=== PATIENT | male | born 1935 | race Caucasian/White ===

== ENCOUNTER 2016-08-31 16:39 | Emergency (ER) | payer OTHER ==
[2016-08-31 16:55] LABS: A-aADO2 96; ALLEN TEST OK? YES; ARTERIAL BLD GAS O2 SATURATION 95.5 % (95-100); ARTERIAL BLOOD GAS BASE EXCESS 9.1 (-2.0-2.0); ARTERIAL BLOOD GAS FIO2 32 %; ARTERIAL BLOOD GAS PO2 63 mmHg (75-100); ARTERIAL BLOOD GAS pH 7.42 (7.35-7.45)
--- NOTE | 2016-08-31 17:07 | ERPHSYRPT ---
- History of Present Illness Source: patient Exam Limitations: clinical condition Patient Subjective Stated Complaint: PT STATES HE HAS BEEN SOB FOR THE PAST 12 HOURS. STATES HE HAS HAD RECENT HEART ATTACK IN THE LAST FEW MONTHS AND GOES TO [facility]. PT HAS HOME OZ AND NEBULIZER TREATMENTS. Triage Nursing Assessment: PT PINK, WARM, DRY. LUNG SOUNDS WHEEZES AND CRACKLES TROUGHOUT. PT UNABLE TO SPEAK IN FULL SENTENCES. Timing/Duration: hour(s) (12) Activities at Onset: none Severity of Dyspnea-Max: moderate Severity of Dyspnea-Current: moderate Possible Cause: occasional episodes Modifying Factors: Improves With: activity Associated Symptoms: edema, wheezing, ankle swelling Hx Tetanus, Diphtheria Vaccination/Date Given: Yes (UP TO DATE) Hx Influenza Vaccination/Date Given: Yes Hx Pneumococcal Vaccination/Date Given: Yes Immunizations Up to Date: Yes <DENNIS VELASQUEZ - Last Filed: 08/31/16 18:57> <CINDY SCALES - Last Filed: 08/31/16 19:54> - History of Present Illness Time Seen by Provider: 08/31/16 16:45 Allergies/Adverse Reactions: No Known Drug Allergies Allergy (Unverified 08/31/16 16:54) Home Medications: Unobtainable [Unobtainable] 08/31/16 [History] - Review of Systems Constitutional: Weakness Eyes: No Symptoms Ears, Nose, & Throat: No Symptoms Respiratory: Dyspnea, Dyspnea on Exertion ([place]), Wheezing Cardiac: Edema Abdominal/Gastrointestinal: No Symptoms Musculoskeletal: No Symptoms Skin: No Symptoms Neurological: No Symptoms Psychological: No Symptoms Endocrine: No Symptoms Hematologic/Lymphatic: No Symptoms <DENNIS VELASQUEZ - Last Filed: 08/31/16 18:57> - Past Medical History Pertinent Past Medical History: Yes Neurological History: No Pertinent History Cardiac History: Other Respiratory History: No Pertinent History, COPD Endocrine Medical History: No Pertinent History Musculoskeletal History: Osteoarthritis Other Medical History: PACEMAKER - Past Surgical History Past Surgical History: Yes Cardiac: Cardiac Catheterization, Pacemaker - Social History Smoking Status: Light tobacco smoker Exposure to second hand smoke: No Drug Use: none Patient Lives Alone: No <DENNIS VELASQUEZ - Last Filed: 08/31/16 18:57> - Physical Exam General Appearance: moderate distress Eye Exam: eyes nml inspection Ears, Nose, Throat Exam: normal ENT inspection, normal pharynx Neck Exam: normal inspection, non-tender, supple, full range of motion Respiratory Exam: respiratory distress, diminished breath sounds, accessory muscle use, crackles/rales, wheezing Cardiovascular/Chest Exam: normal heart sounds Abdominal/Gastrointestinal Exam: soft, normal bowel sounds Extremity Exam: non-tender, normal range of motion, pedal edema (4+ and [place]wn[place] LE) Neurologic Exam: alert, oriented x 3, cooperative Skin Exam: normal color, warm, dry SpO2 Interpretation: hypoxic, ABG ordered, O2 applied SpO2: 71 Oxygen Delivery: Room Air <DENNIS VELASQUEZ - Last Filed: 08/31/16 18:57> - Course Nursing assessment & vital signs reviewed: Yes EKG Interpreted by Me: RATE (80), Sinus Rhythm, Left [place] Deviation (-92), Right Bundle Branch Block, Other (No old ECG for comparison) <DENNIS VELASQUEZ - Last Filed: 08/31/16 18:57> - Radiology Exams cxr X-ray Interpretation: Reviewed by me (CHF and moderate left pleural effusion) <CINDY SCALES - Last Filed: 08/31/16 19:54> Ordered Tests: Active Orders 24 hr Category Date Time Status Sound Equipment Mechanic STAT Care 08/31/16 16:56 Active Clean Catch Urine Specimen STAT Care 08/31/16 17:10 Active EKG-ER Only STAT Care 08/31/16 16:54 Active IV Insertion STAT Care 08/31/16 16:56 Active Oxygen-ED Only NASAL CANNULA 3 lpm Care 08/31/16 17:10 Active Pulse Oximetry (ED) STAT Care 08/31/16 17:10 Active CHEST 1 VIEW (PORTABLE) Stat Exams 08/31/16 17:11 Taken ABG [ARTERIAL BLOOD GASES] Stat Lab 08/31/16 16:50 Completed CBC W DIFF Stat Lab 08/31/16 17:10 Completed CMP Stat Lab 08/31/16 17:10 Completed MAGNESIUM Stat Lab 08/31/16 17:10 Completed Manual Differential NC Stat Lab 08/31/16 17:10 Completed NT PRO BNP Stat Lab 08/31/16 17:10 Completed TROPONIN Q3H Lab 08/31/16 19:45 Ordered TROPONIN Q3H Lab 08/31/16 22:45 Ordered TROPONIN Q3H Lab 09/01/16 01:45 Ordered TROPONIN Q3H Lab 09/01/16 04:45 Ordered TROPONIN Q3H Lab 09/01/16 07:45 Ordered TROPONIN Stat Lab 08/31/16 17:10 Completed UA W/ MICROSCOPIC Stat Lab 08/31/16 17:49 Completed Respiratory Nebulizer STAT RT 08/31/16 19:32 Completed Medication Summary Discontinued Medications Generic Name Dose Route Start Last Admin Trade Name Freq PRN Reason Stop Dose Admin Albuterol/Ipratropium 3 ml 08/31/16 19:31 08/31/16 19:41 Duoneb 0.5-3 Mg/3 Ml Neb IH 08/31/16 19:32 3 ml STAT ONE Administration Albuterol/Ipratropium Confirm 08/31/16 19:40 Duoneb 0.5-3 Mg/3 Ml Neb Administered 08/31/16 19:41 Dose 3 ml IH .STK-MED ONE Aspirin 81 mg 08/31/16 19:31 08/31/16 19:51 Baby Aspirin 81 Mg Chew PO 08/31/16 19:32 81 mg STAT ONE Administration Furosemide 80 mg 08/31/16 18:50 08/31/16 19:01 Lasix 40 Mg/4 Ml IV 08/31/16 18:51 80 mg STAT ONE Administration Furosemide Confirm 08/31/16 19:00 Lasix 40 Mg/4 Ml Administered 08/31/16 19:01 Dose 80 mg .ROUTE .STK-MED ONE Nitroglycerin 1 gm 08/31/16 17:10 08/31/16 17:19 Nitro-Bid 2% Ud Packets TOP 08/31/16 17:11 1 gm STAT ONE Administration Lab/Rad Data: Laboratory Result Diagrams 08/31/16 17:10 08/31/16 17:10 Laboratory Results 08/31/16 08/31/16 08/31/16 Range/Units 17:49 17:10 17:10 WBC 13.5 H (4.0-10.5) K/mm3 RBC 5.05 (4.1-5.6) M/mm3 Hgb 14.5 (12.5-18.0) gm/dl Hct 47.1 (42-50) % MCV 93.3 (78-100) fl MCH 28.7 (26-32) pg MCHC 30.8 L (32-36) g/dl RDW 16.3 H (11.5-14.0) % Plt Count 58 L (150-450) K/mm3 MPV 14.4 H (6-9.5) fl Segmented Neutrophils 92 H (36.-66.) % Band Neutrophils 6 H (0.0-2.0) % Lymphocytes (Manual) 2 L (24-44) % Differential Comment ABNORMAL Platelet Estimate DECREASED (NORMAL) Polychromasia 1+ Basophilic Stippling 1+ Anisocytosis 1+ Puncture Site pCO2 (35-45) mmHg pO2 (75-100) mmHg Base Excess (-2.0-2.0) O2 Saturation (94-100) g/dF ABG pH (7.35-7.45) ABG HCO3 (22-28) ABG O2 Sat (Measured) (95-100) % Kvng Test A-a Gradient a/A Ratio Hemoglobin Carboxyhemoglobin (0.0-6.9) % THgb Methemoglobin (1.4-1.5) % Potassium 4.7 (3.5-5.1) Temperature C POC O2 Flow Rate % Sodium 137 (136-145) mEq/L Chloride 94 L (98-107) mEq/L Carbon Dioxide 34.9 H (21-32) mEq/L Anion Gap 13.2 (5-15) MEQ/L BUN 18 (9-20) mg/dL Creatinine 0.93 (0.55-1.30) mg/dl Estimated GFR > 60 ML/MIN Glucose 102 (70-110) MG/DL Calcium 8.7 (8.5-10.1) mg/dL Magnesium 2.1 (1.8-2.4) mg/dL Total Bilirubin 1.4 H (0.2-1.0) mg/dL AST 24 (15-37) U/L ALT 19 (12-78) U/L Alkaline Phosphatase 108 (46-116) U/L Troponin I 0.042 (0.000-0.056) ng/ml NT-Pro-B Natriuret Pep 1598 H (0-450) pg/ml Serum Total Protein 8.0 (6.4-8.2) gm/dL Albumin 3.3 L (3.4-5.0) g/dL Ur Collection Type CLEAN CATCH Urine Color DARK YELLOW (YELLOW) Urine Appearance CLEAR (CLEAR) Urine pH 7.0 (5-6) Ur Specific [place] 1.015 (1.005-1.025) Urine Protein 30 (Negative) Urine Glucose (UA) NEGATIVE (NEGATIVE) mg/dL Urine Ketones NEGATIVE (NEGATIVE) Urine Nitrite NEGATIVE (NEGATIVE) Urine Bilirubin NEGATIVE (NEGATIVE) Urine Urobilinogen >=8.0 (0-1) mg/dL Urine WBC (Auto) NEGATIVE (NEGATIVE) Urine RBC (Auto) NEGATIVE (0-5) Gaurav/ul Urine Microscopic RBC 0-2 (0-2) /HPF Urine Microscopic WBC 0-2 (0-5) /HPF Ur Epithelial Cells FEW (FEW) /HPF Urine Bacteria FEW (NEGATIVE) /HPF Specimen Received 08/31/16 1740 08/31/16 Range/Units 16:50 WBC (4.0-10.5) K/mm3 RBC (4.1-5.6) M/mm3 Hgb (12.5-18.0) gm/dl Hct (42-50) % MCV (78-100) fl MCH (26-32) pg MCHC (32-36) g/dl RDW (11.5-14.0) % Plt Count (150-450) K/mm3 MPV (6-9.5) fl Segmented Neutrophils (36.-66.) % Band Neutrophils (0.0-2.0) % Lymphocytes (Manual) (24-44) % Differential Comment Platelet Estimate (NORMAL) Polychromasia Basophilic Stippling Anisocytosis Puncture Site RIGHT RADIAL pCO2 55 H (35-45) mmHg pO2 63 L (75-100) mmHg Base Excess 9.1 H (-2.0-2.0) O2 Saturation 90.6 L (94-100) g/dF ABG pH 7.42 (7.35-7.45) ABG HCO3 35.7 H* (22-28) ABG O2 Sat (Measured) 95.5 (95-100) % Kvng Test YES A-a Gradient 96 a/A Ratio 0.40 Hemoglobin 15.1 Carboxyhemoglobin 4.0 (0.0-6.9) % THgb Methemoglobin 1.1 L (1.4-1.5) % Potassium 4.7 (3.5-5.1) Temperature 37.0 C POC O2 Flow Rate 32 % Sodium (136-145) mEq/L Chloride (98-107) mEq/L Carbon Dioxide (21-32) mEq/L Anion Gap (5-15) MEQ/L BUN (9-20) mg/dL Creatinine (0.55-1.30) mg/dl Estimated GFR ML/MIN Glucose (70-110) MG/DL Calcium (8.5-10.1) mg/dL Magnesium (1.8-2.4) mg/dL Total Bilirubin (0.2-1.0) mg/dL AST (15-37) U/L ALT (12-78) U/L Alkaline Phosphatase (46-116) U/L Troponin I (0.000-0.056) ng/ml NT-Pro-B Natriuret Pep (0-450) pg/ml Serum Total Protein (6.4-8.2) gm/dL Albumin (3.4-5.0) g/dL Ur Collection Type Urine Color (YELLOW) Urine Appearance (CLEAR) Urine pH (5-6) Ur Specific [place] (1.005-1.025) Urine Protein (Negative) Urine Glucose (UA) (NEGATIVE) mg/dL Urine Ketones (NEGATIVE) Urine Nitrite (NEGATIVE) Urine Bilirubin (NEGATIVE) Urine Urobilinogen (0-1) mg/dL Urine WBC (Auto) (NEGATIVE) Urine RBC (Auto) (0-5) Gaurav/ul Urine Microscopic RBC (0-2) /HPF Urine Microscopic WBC (0-5) /HPF Ur Epithelial Cells (FEW) /HPF Urine Bacteria (NEGATIVE) /HPF Specimen Received - Progress Progress: improved Air Movement: fair Blood Culture(s) Obtained: No Antibiotics given: No Counseled pt/family regarding: lab results, diagnosis, need for follow-up ( admission at the [facility]), rad results <DENNIS VELASQUEZ - Last Filed: 08/31/16 18:57> <CINDY SCALES - Last Filed: 08/31/16 19:54> - Progress Progress Note: 08/31/16 19:32 Pt with hx of CHF. [facility]. Has had recent ND. No chest pain. Dyspnea all day. He wears home oxygen. Chronic venous stasis with unna boots per [facility]. Pt initially seen per Dr Velasquez. He desaturates off oxygen. Mildly breathless but conversant. 1+ edema legs under unna wraps. Pt desires to go to [facility]. Calling [facility] to arrnage transfer. 08/31/16 19:[address] David Randle at [facility] and he accepts ground tranfer to [facility]. (CINDY SCALES) - Departure Time of Disposition: 19:00 Departure Disposition: Transfer Critical Care Time: Yes Critical Care Time(excluding separately billable procedures): 75-104 minutes <DENNIS VELASQUEZ - Last Filed: 08/31/16 18:57> - Departure Time of Disposition: 19:54 Departure Disposition: Transfer ([facility]) Critical Care Time: Yes Critical Care Time(excluding separately billable procedures): 30-74 minutes <CINDY SCALES - Last Filed: 08/31/16 19:54> - Departure Clinical Impression: Pleural effusion, Hypoxia CHF (congestive heart failure) Qualifiers: Congestive heart failure type: unspecified congestive heart failure type Congestive heart failure chronicity: acute on chronic Qualified Code(s): I50.9 - Heart failure, unspecified Condition: Fair Referrals: HOSPITAL,'S [Primary Care Provider] - Instructions: Heart Failure
[2016-08-31] MEDS ORDERED: NITRO-BID 2% UD PACKETS TOP ONE (17:10)
[2016-08-31 17:47] LABS: Mean Cell Volume 93.3 fl (78-100); Mean Corpuscular Hemoglobin 28.7 pg (26-32); Mean Platelet Volume 14.4 fl (6-9.5); Platelet Count 58 K/mm3 (150-450); Red Blood Count 5.05 M/mm3 (4.1-5.6); Red Cell Distribution Width 16.3 % (11.5-14.0); White Blood Count 13.5 K/mm3 (4.0-10.5)
[2016-08-31 18:02] LABS: ALBUMIN 3.3 g/dL (3.4-5.0); ALKALINE PHOSPHATASE 108 U/L (46-116); ANION GAP 13.2 MEQ/L (5-15); BILIRUBIN,TOTAL 1.4 mg/dL (0.2-1.0); BLOOD UREA NITROGEN 18 mg/dL (9-20); CHLORIDE 94 mEq/L (98-107); Carbon Dioxide 34.9 mEq/L (21-32); Glucose 102 MG/DL (70-110); MAGNESIUM 2.1 mg/dL (1.8-2.4); Potassium 4.7 mEq/L (3.5-5.1); SGOT/AST 24 U/L (15-37); SGPT/ALT 19 U/L (12-78); SODIUM 137 mEq/L (136-145); TROPONIN 0.042 ng/ml (0.000-0.056)
[2016-08-31 18:25] LABS: Collection Type CLEAN CATCH
[2016-08-31 18:26] LABS: Bacteria FEW /HPF (NEGATIVE); COMPLETE URINE MICROSCOPIC? YES; Epithelial Cells FEW /HPF (FEW); WBC 0-2 /HPF (0-5)
[2016-08-31 18:38] LABS: BAND 6 % (0.0-2.0); Total Cells Counted 100
[2016-08-31 18:41] LABS: ANISOCYTOSIS 1+; Basophilic Stippling 1+; Polychromasia 1+
[2016-08-31 18:43] LABS: Platelet Estimate DECREASED (NORMAL)
[2016-08-31] MEDS ORDERED: Lasix 40 MG/4 ML IV ONE (18:50)
[2016-08-31] MEDS ORDERED: Lasix 40 MG/4 ML ONE (19:00)
[2016-08-31] MEDS ORDERED: BABY ASPIRIN 81 MG CHEW PO ONE (19:31)
[2016-08-31] MEDS ORDERED: DUONEB 0.5-3 MG/3 ml Neb IH ONE ×2 (19:31→19:40)
[2016-08-31] MEDS ORDERED: BABY ASPIRIN 81 MG CHEW ONE (19:51)
[2016-08-31 20:43] VITALS: O2SAT 89
[2016-08-31 21:10] VITALS: BP 93/58; PULSE 80
[2016-09-01] MEDS ORDERED: NITRO-BID 2% UD PACKETS ONE (02:02)
--- NOTE | 2016-09-01 08:51 | XRAY ---
Indication: Short of breath. Comparison: None Portable chest demonstrates cardiomegaly, vascular congestion, and left-sided dual-lead pacemaker. There is also left base infiltrate/atelectasis/effusion. Bony thorax intact with mild osteopenia and degenerative changes. Impression: Radiographic features favoring cardiac decompensation with left base infiltrate/atelectasis/effusion. Superimposed pneumonia not completely excluded.
== END 2016-08-31 21:25 | disposition short-term general hospital (02) ==
LOC: ED 16:39
DX: I50.9 Heart failure, unspecified (principal); J90 Pleural effusion, not elsewhere classified; R09.02 Hypoxemia
CPT/HCPCS: 36000; 36415; 36600; 71010; 80053; 81000; 82375; 82803; 83735; 83880; 84484; 85025; 93005; 93041; 94640; 94760; 96374; 99284; J1940

== ENCOUNTER 2017-06-07 05:02 | Emergency (ER) | payer OTHER ==
[2017-06-07] MEDS ORDERED: Nitrostat 0.4 MG (ED) SL ONE ×2 (05:20→11:23)
[2017-06-07] MEDS ORDERED: BABY ASPIRIN 81 MG CHEW PO ONE (05:20)
[2017-06-07] MEDS ORDERED: Sodium Chloride 0.9% 1000 ML 1,000 ML ONE (05:27)
[2017-06-07] MEDS ORDERED: Sodium Chloride 0.9% 1000 ML 1,000 ML IV SCH (05:30)
--- NOTE | 2017-06-07 05:39 | ERPHSYRPT ---
- History of Present Illness Time Seen by Provider: 06/07/17 05:13 Source: patient Exam Limitations: no limitations Physician History: FOR THE PAST 4 DAYS PT HAS HAD CHEST PAIN; FOR THE PAST 4 YEARS PT HAS HAD COUGH PRODUCTIVE OF WHITE PHLEGM. PT DENIES ABDOMINAL PAIN, DIAPHORESIS, NAUSEA , VOMITING, FEVER. Allergies/Adverse Reactions: No Known Drug Allergies Allergy (Unverified 08/31/16 16:54) Home Medications: Albuterol 2.5 mg/3 ml Neb [Proventil 2.5 mg/3 ml Neb] 2.5 mg IH Q6H PRN PRN 08/31/16 [History] Atorvastatin Calcium [Lipitor 40Mg] 10 mg PO HS 08/31/16 [History] Budesonide [Pulmicort Flexhaler] 2 inh BID 08/31/16 [History] Lisinopril 5 mg [Zestril 5 MG] 2.5 mg PO DAILY 08/31/16 [History] Metoprolol Succinate 25 mg Xl* [Toprol-Xl 25MG Tablets] 12.5 mg PO DAILY 11/12 [History] Tiotropium [place] Inhaler [Spiriva 18 Mcg/Cap Inhaler] 1 ea IH DAILY 11/12 [History] Torsemide [Demadex] 20 mg PO BID 08/31/16 [History] Hx Tetanus, Diphtheria Vaccination/Date Given: Yes (UP TO DATE) Hx Influenza Vaccination/Date Given: Yes Hx Pneumococcal Vaccination/Date Given: Yes - Review of Systems Constitutional: No Fever Respiratory: Cough, No Dyspnea Cardiac: Chest Pain Abdominal/Gastrointestinal: No Abdominal Pain, No Nausea, No Vomiting Endocrine: No Excessive Sweating All Other Systems: Reviewed and Negative - Past Medical History Pertinent Past Medical History: Yes Neurological History: No Pertinent History Cardiac History: Other Respiratory History: No Pertinent History, COPD Endocrine Medical History: No Pertinent History Musculoskeletal History: Osteoarthritis Other Medical History: PACEMAKER - Past Surgical History Past Surgical History: Yes Cardiac: Cardiac Catheterization, Pacemaker - Social History Smoking Status: Light tobacco smoker Exposure to second hand smoke: No Drug Use: none Patient Lives Alone: No - Nursing Vital Signs Nursing Vital Signs: Initial Vital Signs Temperature 97.7 F 06/07/17 05:05 Pulse Rate 80 06/07/17 05:05 Respiratory Rate 20 06/07/17 05:05 Blood Pressure 110/73 06/07/17 05:05 O2 Sat by Pulse Oximetry 91 L 06/07/17 05:05 Pain Scale Pain Intensity 3 - Physical Exam General Appearance: alert Eye Exam: PERRL/EOMI Ears, Nose, Throat Exam: moist mucous membranes, pharyngeal erythema Neck Exam: normal inspection Respiratory Exam: diminished breath sounds (MILDLY DECREASED BREATH SOUNDS OVER LEFT POSTERIOR DEE.) Cardiovascular Exam: normal heart sounds Gastrointestinal/Abdomen Exam: normal bowel sounds Back Exam: normal inspection Extremity Exam: other (+1 ANKLE EDEMA) Neurologic Exam: alert, cooperative Skin Exam: warm, dry, other (STASIS DERMATITIS OF LEGS) SpO2 Interpretation: normal SpO2: 96 Oxygen Delivery: Nasal Cannula (3L) - Course Nursing assessment & vital signs reviewed: Yes EKG Interpreted by Me: RATE (82), Other (PACEMAKER EKG) - Radiology Exams Chest X-ray Interpretation: Interpreted by me (CM; LARGE LEFT PLEURAL EFFUSION; PNEUMONIA.) Ordered Tests: Active Orders 24 hr Category Date Time Status Accelerator Systems Director STAT Care 06/07/17 05:21 Active EKG-ER Only STAT Care 06/07/17 05:20 Active IV Insertion STAT Care 06/07/17 05:20 Active Oxygen-ED Only NASAL CANNULA 2 lpm Care 06/07/17 05:20 Active Pulse Oximetry (ED) STAT Care 06/07/17 05:20 Active Regular Diet Diet 06/07/17 Breakfast Active CHEST 2 VIEWS (PA AND LAT) Stat Exams 06/07/17 05:21 Taken AMYLASE Stat Lab 06/07/17 05:10 Completed BLOOD CULTURE Stat Lab 06/07/17 05:20 Received CBC W DIFF Stat Lab 06/07/17 05:10 Completed CMP Stat Lab 06/07/17 05:10 Completed CULTURE, THROAT Stat Lab 06/07/17 07:00 Received CULTURE,SPUTUM Stat Lab 06/07/17 06:17 Uncollected LIPASE Stat Lab 06/07/17 05:10 Completed MAGNESIUM Stat Lab 06/07/17 05:10 Completed Manual Differential NC Stat Lab 06/07/17 05:10 Completed NT PRO BNP Stat Lab 06/07/17 05:10 Completed PROTIME WITH INR Stat Lab 06/07/17 05:10 Completed PTT Stat Lab 06/07/17 05:10 Completed STREP SCREEN-BETA A Stat Lab 06/07/17 07:00 Completed TROPONIN Q3H Lab 06/07/17 05:10 Completed TROPONIN Q3H Lab 06/07/17 08:30 Ordered TROPONIN Q3H Lab 06/07/17 11:30 Ordered TROPONIN Q3H Lab 06/07/17 14:30 Ordered TROPONIN Q3H Lab 06/07/17 17:30 Ordered UA W/ MICROSCOPIC Stat Lab 06/07/17 06:00 Completed Respiratory Nebulizer STAT RT 06/07/17 06:17 Active Medication Summary Generic Name Dose Route Start Last Admin Trade Name Freq PRN Reason Stop Dose Admin Sodium Chloride 1,000 mls @ 100 mls/hr 06/07/17 05:30 06/07/17 05:31 Sodium Chloride 0.9% 1000 Ml IV 07/07/17 05:29 100 mls/hr .Q10H AIME Administration Discontinued Medications Generic Name Dose Route Start Last Admin Trade Name Freq PRN Reason Stop Dose Admin Albuterol Sulfate 2.5 mg 06/07/17 06:17 06/07/17 06:36 Proventil 2.5 Mg/3 Ml Neb IH 06/07/17 06:18 2.5 mg STAT ONE Administration Albuterol Sulfate Confirm 06/07/17 06:28 Proventil 2.5 Mg/3 Ml Neb Administered 06/07/17 06:29 Dose 2.5 mg IH .STK-MED ONE Aspirin 324 mg 06/07/17 05:20 06/07/17 05:32 Baby Aspirin 81 Mg Chew PO 06/07/17 05:21 324 mg STAT ONE Administration Ceftriaxone Sodium/Dextrose 1 g in 50 mls @ 100 mls/hr 06/07/17 06:17 06:40 Rocephin 1 Gm-D5w 50 Ml Bag IV 06/07/17 06:46 100 mls/hr STAT STA Administration Azithromycin 500 mg in 250 mls @ 250 mls/hr 06/07/17 06:17 06/07/17 07:14 Zithromax 500 Mg/ 250 Ml Nacl Premix IV 06/07/17 07:16 250 mls/hr STAT STA Administration Ceftriaxone Sodium/Dextrose Confirm 06/07/17 06:33 Rocephin 1 Gm-D5w 50 Ml Bag Administered 06/07/17 06:34 Dose 1 g in 50 mls @ ud IV .STK-MED ONE Azithromycin Confirm 06/07/17 06:53 Zithromax 500 Mg/ 250 Ml Nacl Premix Administered 06/07/17 06:54 Dose 500 mg in 250 mls @ ud IV .STK-MED ONE Nitroglycerin 0.4 mg 06/07/17 05:20 06/07/17 05:32 Nitrostat 0.4 Mg (Ed) SL 06/07/17 05:21 0.4 mg STAT ONE Administration Lab/Rad Data: Laboratory Result Diagrams 06/07/17 05:10 06/07/17 05:10 Laboratory Results 06/07/17 06/07/17 06/07/17 Range/Units 07:00 06:00 05:10 WBC (4.0-10.5) K/mm3 RBC (4.1-5.6) M/mm3 Hgb (12.5-18.0) gm/dl Hct (42-50) % MCV (78-100) fl MCH (26-32) pg MCHC (32-36) g/dl RDW (11.5-14.0) % Plt Count (150-450) K/mm3 MPV (6-9.5) fl Segmented Neutrophils (36.-66.) % Band Neutrophils (0.0-2.0) % Lymphocytes (Manual) (24-44) % Monocytes (Manual) (0.0-12.0) % Differential Comment Toxic Granulation Platelet Estimate (NORMAL) INR (0.8-3.0) APTT (24.1-36.1) SECONDS Sodium (136-145) mEq/L Potassium (3.5-5.1) mEq/L Chloride (98-107) mEq/L Carbon Dioxide (21-32) mEq/L Anion Gap (5-15) MEQ/L BUN (9-20) mg/dL Creatinine (0.55-1.30) mg/dl Estimated GFR ML/MIN Glucose (70-110) MG/DL Calcium (8.5-10.1) mg/dL Magnesium (1.8-2.4) mg/dL Total Bilirubin (0.2-1.0) mg/dL AST (15-37) U/L ALT (12-78) U/L Alkaline Phosphatase (46-116) U/L Troponin I 0.023 (0.000-0.056) ng/ml NT-Pro-B Natriuret Pep (0-450) pg/ml Serum Total Protein (6.4-8.2) gm/dL Albumin (3.4-5.0) g/dL Amylase (25-115) U/L Lipase (73-393) U/L Ur Collection Type VOID Urine Color YELLOW (YELLOW) Urine Appearance CLEAR (CLEAR) Urine pH 5.0 (5-6) Ur Specific [place] 1.015 (1.005-1.025) Urine Protein NEGATIVE (Negative) Urine Ketones NEGATIVE (NEGATIVE) Urine Blood NEGATIVE (0-5) Gaurav/ul Urine Nitrite NEGATIVE (NEGATIVE) Urine Bilirubin SMALL (NEGATIVE) Urine Urobilinogen 1 (0-1) mg/dL Ur Leukocyte Esterase 2+ (NEGATIVE) Urine Microscopic WBC 5-10 (0-5) /HPF Ur Epithelial Cells RARE (FEW) /HPF Urine Bacteria FEW (NEGATIVE) /HPF Urine Culture Reflexed NO (NO) Urine Glucose NEGATIVE (NEGATIVE) mg/dL Streptococcus Screen NEGATIVE (Negative) Specimen Received 06/07/17 0600 06/07/17 06/07/17 06/07/17 Range/Units 05:10 05:10 05:10 WBC 12.3 H (4.0-10.5) K/mm3 RBC 4.09 L (4.1-5.6) M/mm3 Hgb 11.9 L (12.5-18.0) gm/dl Hct 38.6 L (42-50) % MCV 94.4 (78-100) fl MCH 29.0 (26-32) pg MCHC 30.8 L (32-36) g/dl RDW 14.6 H (11.5-14.0) % Plt Count 125 L (150-450) K/mm3 MPV 12.8 H (6-9.5) fl Segmented Neutrophils 91 H (36.-66.) % Band Neutrophils 2 (0.0-2.0) % Lymphocytes (Manual) 3 L (24-44) % Monocytes (Manual) 4 (0.0-12.0) % Differential Comment NORMAL Toxic Granulation 2+ Platelet Estimate DECREASED (NORMAL) INR 1.94 (0.8-3.0) APTT 34.8 (24.1-36.1) SECONDS Sodium 140 (136-145) mEq/L Potassium 4.1 (3.5-5.1) mEq/L Chloride 98 (98-107) mEq/L Carbon Dioxide 35.7 H (21-32) mEq/L Anion Gap 10.2 (5-15) MEQ/L BUN 34 H (9-20) mg/dL Creatinine 1.16 (0.55-1.30) mg/dl Estimated GFR > 60 ML/MIN Glucose 108 (70-110) MG/DL Calcium 8.6 (8.5-10.1) mg/dL Magnesium 2.2 (1.8-2.4) mg/dL Total Bilirubin 1.10 H (0.2-1.0) mg/dL AST 16 (15-37) U/L ALT 19 (12-78) U/L Alkaline Phosphatase 94 (46-116) U/L Troponin I (0.000-0.056) ng/ml NT-Pro-B Natriuret Pep 1429 H (0-450) pg/ml Serum Total Protein 7.1 (6.4-8.2) gm/dL Albumin 2.8 L (3.4-5.0) g/dL Amylase 55 (25-115) U/L Lipase 130 (73-393) U/L Ur Collection Type Urine Color (YELLOW) Urine Appearance (CLEAR) Urine pH (5-6) Ur Specific [place] (1.005-1.025) Urine Protein (Negative) Urine Ketones (NEGATIVE) Urine Blood (0-5) Gaurav/ul Urine Nitrite (NEGATIVE) Urine Bilirubin (NEGATIVE) Urine Urobilinogen (0-1) mg/dL Ur Leukocyte Esterase (NEGATIVE) Urine Microscopic WBC (0-5) /HPF Ur Epithelial Cells (FEW) /HPF Urine Bacteria (NEGATIVE) /HPF Urine Culture Reflexed (NO) Urine Glucose (NEGATIVE) mg/dL Streptococcus Screen (Negative) Specimen Received - Progress Discussed with : Other (SPOKE WITH DR FUNEZ([id number]) WHO ACCEPTED PT FOR TRANSFER TO [facility] A DIRECT ADMISSION.) - Departure Time of Disposition: 07:49 Departure Disposition: Transfer ([place], [place] Clinical Impression: CHEST PAIN, SHORTNESS OF AIR, PNEUMONIA, COPD, ARTHRITIS Condition: Stable Critical Care Time: No Referrals: HOSP[facility],'S [Primary Care Provider] -
[2017-06-07 05:42] LABS: Mean Cell Volume 94.4 fl (78-100); Mean Platelet Volume 12.8 fl (6-9.5); Platelet Count 125 K/mm3 (150-450); Red Blood Count 4.09 M/mm3 (4.1-5.6); Red Cell Distribution Width 14.6 % (11.5-14.0); White Blood Count 12.3 K/mm3 (4.0-10.5)
[2017-06-07] MEDS ORDERED: ROCEPHIN 1 Gm-D5w 50 ml Bag** 1 G/50 ML IVPB IV STA (06:17)
[2017-06-07] MEDS ORDERED: Zithromax 500 MG/ 250 ML NaCl Premix 500 MG/250 ML IVPB IV STA (06:17)
[2017-06-07] MEDS ORDERED: PROVENTIL 2.5 MG/3 ML NEB IH ONE ×2 (06:17→06:28)
[2017-06-07 06:32] LABS: PROTIME 21.7 SECONDS (8.83-12.87)
[2017-06-07] MEDS ORDERED: ROCEPHIN 1 Gm-D5w 50 ml Bag** 1 G/50 ML IVPB IV ONE (06:33)
[2017-06-07 06:34] LABS: PTT 34.8 SECONDS (24.1-36.1)
[2017-06-07 06:36] LABS: INR 1.94 (0.8-3.0)
[2017-06-07 06:47] LABS: ALBUMIN 2.8 g/dL (3.4-5.0); ALKALINE PHOSPHATASE 94 U/L (46-116); ANION GAP 10.2 MEQ/L (5-15); BLOOD UREA NITROGEN 34 mg/dL (9-20); CHLORIDE 98 mEq/L (98-107); Carbon Dioxide 35.7 mEq/L (21-32); Glucose 108 MG/DL (70-110); LIPASE 130 U/L (73-393); MAGNESIUM 2.2 mg/dL (1.8-2.4); Potassium 4.1 mEq/L (3.5-5.1); SGOT/AST 16 U/L (15-37); SGPT/ALT 19 U/L (12-78); SODIUM 140 mEq/L (136-145); Total Protein 7.1 gm/dL (6.4-8.2)
[2017-06-07] MEDS ORDERED: Zithromax 500 MG/ 250 ML NaCl Premix 500 MG/250 ML IVPB IV ONE (06:53)
[2017-06-07 06:59] LABS: BAND 2 % (0.0-2.0); Total Cells Counted 100
[2017-06-07 07:00] VITALS: O2SAT 96
[2017-06-07 07:00] LABS: ADD URINE CULTURE? NO (NO); Bacteria FEW /HPF (NEGATIVE); Bilirubin SMALL (NEGATIVE); Blood NEGATIVE Ery/ul (0-5); COMPLETE URINE MICROSCOPIC? YES; Collection Type VOID; Epithelial Cells RARE /HPF (FEW); Glucose NEGATIVE (NEGATIVE); Leukocyte Esterase 2+ (NEGATIVE)
[2017-06-07 07:00] LABS: Platelet Estimate DECREASED (NORMAL); Toxic Granulation 2+
[2017-06-07 08:34] VITALS: BP 86/56; PULSE 79
--- NOTE | 2017-06-07 09:30 | XRAY ---
Indication: Chest pain and cough. Comparison: August 31, 2016. AP/lateral chest again demonstrates cardiomegaly and vascular congestion with interval worsening left base infiltrate/atelectasis/effusion and new tiny right effusion. Stable left-sided dual-lead pacemaker and left hemidiaphragm elevation.
[2017-06-07] MEDS ORDERED: BABY ASPIRIN 81 MG CHEW ONE (11:23)
== END 2017-06-07 08:48 | disposition short-term general hospital (02) ==
LOC: ED 05:02
DX: R07.89 Other chest pain (principal); R06.02 Shortness of breath; J18.9 Pneumonia, unspecified organism; J44.9 Chronic obstructive pulmonary disease, unspecified; M19.90 Unspecified osteoarthritis, unspecified site
CPT/HCPCS: 36000; 36415; 71020; 80053; 81000; 82150; 83690; 83735; 83880; 84484; 85025; 85610; 85730; 87040; 87070; 87430; 93005; 93041; 94640; 96360; 96361; 96365; 96367; 99285; J0456; J0696; A9270-GY

== ENCOUNTER 2017-11-22 05:45 | Emergency (ER) | payer OTHER ==
[2017-11-22 06:19] VITALS: O2SAT 96
--- NOTE | 2017-11-22 06:22 | ERPHSYRPT ---
- History of Present Illness Time Seen by Provider: 11/22/17 06:17 Source: patient Exam Limitations: no limitations Physician History: The patient is an 82-year-old male complaining of being awakened 2 hours ago with a nosebleed coming from the left nostril. He attempted to stop the bleeding by placing several cotton balls up his nose. It is still bleeding at this time but has slowed considerably. Over the past several days he's been blowing his nose more often than usual. While at home, he is always using 3 L of supplemental oxygen by nasal cannula. He does not take blood thinners. His past medical history is significant for congestive heart failure, COPD, hypertension, and high cholesterol. Timing/Duration: abrupt onset, hours (2) Severity: moderate ENT Location: nose Prearrival Treatment: nasal packing Associated Symptoms: nasal congestion/drainage Allergies/Adverse Reactions: No Known Drug Allergies Allergy (Unverified 08/31/16 16:54) Home Medications: Albuterol 2.5 mg/3 ml Neb [Proventil 2.5 mg/3 ml Neb] 2.5 mg IH Q6H PRN PRN 08/31/16 [History] Atorvastatin Calcium [Lipitor 40Mg] 10 mg PO HS 08/31/16 [History] Budesonide [Pulmicort Flexhaler] 2 inh BID 08/31/16 [History] Lisinopril 5 mg [Zestril 5 MG] 2.5 mg PO DAILY 08/31/16 [History] Metoprolol Succinate 25 mg Xl* [Toprol-Xl 25MG Tablets] 12.5 mg PO DAILY 11/12 [History] Tiotropium [place] Inhaler [Spiriva 18 Mcg/Cap Inhaler] 1 ea IH DAILY 11/12 [History] Torsemide [Demadex] 20 mg PO BID 08/31/16 [History] Hx Tetanus, Diphtheria Vaccination/Date Given: Yes (UP TO DATE) Hx Influenza Vaccination/Date Given: Yes Hx Pneumococcal Vaccination/Date Given: Yes - Review of Systems Constitutional: No Fever, No Chills Eyes: No Symptoms Ears, Nose, & Throat: Epistaxis Respiratory: No Cough, No Dyspnea Cardiac: No Chest Pain, No Edema, No Syncope Abdominal/Gastrointestinal: No Abdominal Pain, No Nausea, No Vomiting, No Diarrhea Genitourinary Symptoms: No Dysuria Musculoskeletal: No Back Pain, No Neck Pain Skin: No Rash Neurological: No Dizziness, No Focal Weakness, No Sensory Changes Psychological: No Symptoms Endocrine: No Symptoms Hematologic/Lymphatic: No Symptoms Immunological/Allergic: No Symptoms All Other Systems: Reviewed and Negative - Past Medical History Pertinent Past Medical History: Yes Neurological History: No Pertinent History Cardiac History: Other Respiratory History: No Pertinent History, COPD Endocrine Medical History: No Pertinent History Musculoskeletal History: Osteoarthritis Other Medical History: PACEMAKER - Past Surgical History Past Surgical History: Yes Cardiac: Cardiac Catheterization, Pacemaker - Social History Smoking Status: Light tobacco smoker Exposure to second hand smoke: No Drug Use: none Patient Lives Alone: No - Physical Exam General Appearance: no apparent distress, alert Eye Exam: bilateral eye: PERRL, EOMI Ear Exam: bilateral ear: auricle normal Nasal Exam: active bleeding (3 large cotton balls in left nares with large blood clot upon removal of cotton balls.) Throat Exam: pharynx normal, moist mucus membranes, No tonsillar exudate Neck Exam: supple Cardiovascular/Respiratory Exam: normal breath sounds, regular rate/rhythm Abdominal Exam: non-tender, soft Neurologic Exam: alert, oriented x 3, sensation nml, No motor deficits Skin Exam: normal color, warm, dry SpO2 Interpretation: O2 applied Oxygen Delivery: Nasal Cannula - Progress Progress: improved Progress Note: 11/22/17 06:21 8 cm Rapid Rhino placed in left nares with resolution of epistaxis. Counseled pt/family regarding: diagnosis, need for follow-up - Departure Time of Disposition: 06:22 Departure Disposition: Home Clinical Impression: Epistaxis Condition: Stable Critical Care Time: No Referrals: [facility]OSPITAL,'[facility] [Primary Care Provider] - Additional Instructions: You had a nosebleed coming from the left nostril. We placed a 8 cm rapid Rhino in the left nostril to stop the bleeding. You need to follow-up with your primary care doctor in 1-2 days for removal of the nasal packing.
[2017-11-22 06:44] VITALS: BP 109/62; PULSE 79
== END 2017-11-22 07:10 | disposition home or self-care (01) ==
LOC: ED 05:45
PROC: 2Y41X5Z Packing of Nasal Region using Packing Material (ICD-10-PCS; principal; 2017-11-22)
DX: R04.0 Epistaxis (principal)
CPT/HCPCS: 30901; 36000; 99282

== ENCOUNTER 2018-06-04 04:52 | Emergency (ER) | payer OTHER ==
[2018-06-04] MEDS ORDERED: BACIGUENT PACKET ONE (05:16)
[2018-06-04] MEDS ORDERED: BACIGUENT PACKET TP ONE (05:17)
--- NOTE | 2018-06-04 05:24 | ERPHSYRPT ---
- History of Present Illness Time Seen by Provider: 06/04/18 05:18 Source: patient, EMS Exam Limitations: no limitations Physician History: 83-year-old white male with history of osteoarthritis, COPD, cardiac pacemaker Arrives with complaint of bleeding from his left great toe also with multiple abrasions on his right toes. Patient also with an abrasion to his left knee. And with a skin tear to his left forearm. Symptoms since just prior to arrival. Patient states he was going to give himself a breathing treatment when he got his toes caught in a metal grate between the door and he fell. Patient had a moderate amount of bleeding from the left great toe this has improved. He has pain in his toes. Abrasion to his left knee and skin tear to his left forearm as noted above. Patient is stating that he does not want sutures at this time. He also stated he was going to give himself a breathing treatment I offered to go ahead and give him 1 he does not want this. Past medical history includes COPD, osteoarthritis, pacemaker. Past surgical history includes cardiac catheter and pacemaker Social history positive tobacco use Timing/Duration: today (just prior to arrival) Severity: moderate Modifying Factors: Improves With: nothing Associated Symptoms: shortness of breath (chronic shortness of breath), No nausea, No vomiting, No abdominal pain, No heartburn, No diaphoresis, No cough, No chills, No chest pain, No fever, No headaches, No loss of appetite, No malaise, No rash, No syncope, No seizure, No weakness Allergies/Adverse Reactions: No Known Drug Allergies Allergy (Verified 06/04/18 05:26) Home Medications: Albuterol 2.5 mg/3 ml Neb [Proventil 2.5 mg/3 ml Neb] 2.5 mg IH Q6H PRN PRN 08/31/16 [History] Atorvastatin Calcium [Lipitor 40Mg] 10 mg PO HS 08/31/16 [History] Budesonide [Pulmicort Flexhaler] 2 inh BID 08/31/16 [History] Lisinopril 5 mg [Zestril 5 MG] 2.5 mg PO DAILY 08/31/16 [History] Metoprolol Succinate 25 mg Xl* [Toprol-Xl 25MG Tablets] 12.5 mg PO DAILY 11/12 [History] Tiotropium [place] Inhaler [Spiriva 18 Mcg/Cap Inhaler] 1 ea IH DAILY 11/12 [History] Torsemide [Demadex] 20 mg PO BID 08/31/16 [History] Hx Tetanus, Diphtheria Vaccination/Date Given: Yes (UP TO DATE) Hx Influenza Vaccination/Date Given: Yes Hx Pneumococcal Vaccination/Date Given: Yes - Review of Systems Constitutional: No Fever, No Chills Eyes: No Symptoms Ears, Nose, & Throat: No Symptoms Respiratory: Dyspnea (Chronic shortness of breath), No Cough, No Cyanosis, No Dyspnea on Exertion ([place]), No Stridor, No Wheezing Cardiac: No Chest Pain, No Edema, No Syncope Abdominal/Gastrointestinal: No Abdominal Pain, No Nausea, No Vomiting, No Diarrhea Genitourinary Symptoms: No Dysuria Musculoskeletal: Other (Pain in toes on bilateral feet, laceration proximal and medial left great toe alongside of nail, hypertrophied nail left great toe. Multiple small abrasions right first second and third distally,) Skin: Other (laceration left great toe, multiple abrasions (small skin tear dista right first second third toe, skin tear left forearm) Neurological: No Dizziness, No Focal Weakness, No Sensory Changes Psychological: No Symptoms Endocrine: No Symptoms All Other Systems: Reviewed and Negative - Past Medical History Pertinent Past Medical History: Yes Neurological History: No Pertinent History Cardiac History: Other Respiratory History: No Pertinent History, COPD Endocrine Medical History: No Pertinent History Musculoskeletal History: Osteoarthritis Other Medical History: PACEMAKER - Past Surgical History Past Surgical History: Yes Cardiac: Cardiac Catheterization, Pacemaker - Social History Smoking Status: Light tobacco smoker Exposure to second hand smoke: No Drug Use: none Patient Lives Alone: No - Nursing Vital Signs Nursing Vital Signs: Initial Vital Signs Temperature 97.6 F 06/04/18 04:55 Pulse Rate 83 06/04/18 04:55 Respiratory Rate 24 06/04/18 04:55 Blood Pressure 110/65 06/04/18 04:55 O2 Sat by Pulse Oximetry 96 06/04/18 04:55 Pain Scale Pain Intensity 4 - Physical Exam General Appearance: other (Well-developed well-nourished white male, chronically ill-appearing) Eye Exam: PERRL/EOMI, eyes nml inspection Ears, Nose, Throat Exam: normal ENT inspection, TMs normal, pharynx normal, moist mucous membranes Neck Exam: normal inspection, non-tender, supple, full range of motion Respiratory Exam: normal breath sounds, lungs clear, No respiratory distress Cardiovascular Exam: regular rate/rhythm, normal heart sounds, normal peripheral pulses Gastrointestinal/Abdomen Exam: soft, normal bowel sounds, No tenderness, No mass Back Exam: normal inspection, normal range of motion, No CVA tenderness, No vertebral tenderness Extremity Exam: other (laceration proximal to left great toe and medially alongside left great toenail approximately 3 cm. Small less than 1 cm laceration /skin tear distal right first second and third toes,) Neurologic Exam: alert, oriented x 3, cooperative, captain waiter II-XII nml as tested, normal mood/affect, nml cerebellar function, nml station & gait, sensation nml, No motor deficits Skin Exam: other (3 cm laceration left great toe proximal to and alongside ( medially) left great toenail. Small less than 1 cm lacerations/abrasions distal right first second third toe) Lymphatic Exam: No adenopathy SpO2 Interpretation: normal (98%) Oxygen Delivery: Nasal Cannula (3lnc) - Course Nursing assessment & vital signs reviewed: Yes - Radiology Exams Right Foot X-ray Interpretation: Discussed w/ radiologist (x ray right foot: distal great toe soft tissure swelling/ laceration and small heel spurs. No other bony , articular , or soft tissue abnormalities,) Left Foot X-ray Interpretation: Discussed w/ radiologist (x ray left foot: distal great toe soft tissue swelling/laceration and small heel spurs. no other bony, articular, or soft tissue abnormalities.) Ordered Tests: Active Orders 24 hr Category Date Time Status Splint STAT Care 06/04/18 06:41 Active Wound Care STAT Care 06/04/18 05:17 Active FOOT (MINIMUM 3 VIEWS) Stat Exams 06/04/18 05:14 Completed FOOT (MINIMUM 3 VIEWS) Stat Exams 06/04/18 05:16 Completed Medication Summary Discontinued Medications Generic Name Dose Route Start Last Admin Trade Name Freq PRN Reason Stop Dose Admin Bacitracin Zinc 0.9 gm 06/04/18 05:17 06/04/18 06:51 Baciguent Packet TP 06/04/18 05:18 0.9 gm STAT ONE Administration Bacitracin Zinc Confirm 06/04/18 05:16 Baciguent Packet Administered 06/04/18 05:17 Dose 3 gm .ROUTE .Qubell-MED ONE - Progress Progress: improved Progress Note: 06/04/18 05:27 This is a 83-year-old white male with history of COPD osteoarthritis cardiac pacemaker. He arrives with complaint of a 3 cm laceration to the left great toe also with multiple less than 1 cm laceration/abrasions to his distal right first second third toe. , An abrasion approximately 3 cm 5 cm to his left knee. Also with a skin tear approximately 1 cm 6 cm on his left forearm. He apparently got his foot caught in a great through a doorway while going to get a breathing treatment, He is alert oriented 3 he states he does not want sutures, He does have a rather impressive laceration proximal to his left great toenail and alongside left great toenail however this area of more appears like he a gouge and the skin edges do not appear to move, He also has several small abrasions/lacerations to the distal first second and third right toe, he also has a skin tear to the distal left great toe. Will go ahead and get an x-ray of the patient's bilateral feet. Plan to clean the area consider Dermabond for skin repair on the left great toe. . Patient was offered breathing treatment he does not want want he states he will get one at home he states he is up-to-date on his tetanus was last tetanus in 2016. I've offered him pain medication he does not want any pain medication. He has an abrasion to his left knee approximately 3 x 6 cm, He also has a skin tear to the left forearm approximately 1.56 cm, He does not want sutures in this case 06/04/18 06:13 06/04/18 06:27 06/04/18 06:28 Patient's left great toe is reexamined patient does have what appears to be a 3 cm laceration [place] excoriation on his left great toe proximal to and the medial to the great toenail he also has what appears to be a skin tear on the distal left great toe volar surface. This does not appear to be something that I can suture. Will have the nurses clean the area apply dressing and Surgicel to the area. The laceration/abrasions to the right first second third toe do not require suturing Will have nurses clean the area and apply bacitracin and dressing. 06/04/18 06:39 the patient refuses any pain medications. 06/04/18 06:42 The patient's skin tear on his left forearm is cleansed Steri-Strips by the patient's nurses. - Departure Time of Disposition: 07:05 Departure Disposition: Home Clinical Impression: Bilateral foot pain, abrasion to toes multiple Laceration of left great toe Qualifiers: Encounter type: initial encounter Damage to nail status: without damage Foreign body presence: without foreign body Qualified Code(s): S91.112A - Laceration without foreign body of left great toe without damage to nail, initial encounter Condition: Fair Critical Care Time: No Referrals: [facility]OSP[facility] [Primary Care Provider] - Additional Instructions: . Leave dressing on left great toe until tomorrow. Then bacitracin daily. Follow-up with your family doctor or [facility] , or Dr. Branch. Bacitracin to right toes until abrasions/lacerations healed. Bacitracin to left knee until healed. Tylenol every 4 hours as needed for pain. Return for acute distress or for severe symptoms. follow up with your family doctor tomorrow. cool packs and elevate your left foot 24-48 hours.
[2018-06-04 06:47] VITALS: BP 107/62; PULSE 74
[2018-06-04 06:58] VITALS: O2SAT 95
--- NOTE | 2018-06-04 06:59 | XRAY ---
Indication: Great toe laceration following injury. Comparison: None 3 nonweightbearing views of the left foot demonstrates distal great toe soft tissue swelling/laceration and small heel spurs. No other bony, articular, or soft tissue abnormalities.
--- NOTE | 2018-06-04 07:01 | XRAY ---
Indication: 2nd-4th toe laceration following injury. Comparison: None 3 nonweightbearing views of the right foot demonstrate small heel spurs and tiny accessory ossicle base of the 5th metatarsal. No other bony, articular, or soft tissue abnormalities.
== END 2018-06-04 07:30 | disposition home or self-care (01) ==
LOC: ED 04:52
PROC: 0HQNXZZ Repair Left Foot Skin, External Approach (ICD-10-PCS; principal; 2018-06-04)
DX: S91.112A Laceration without foreign body of left great toe without damage to nail, initial encounter (principal); S51.812A Laceration without foreign body of left forearm, initial encounter; S91.114A Laceration without foreign body of right lesser toe(s) without damage to nail, initial encounter; S80.212A Abrasion, left knee, initial encounter; W01.0XXA Fall on same level from slipping, tripping and stumbling without subsequent striking against object, initial encounter; Y92.009 Unspecified place in unspecified non-institutional (private) residence as the place of occurrence of the external cause; Z79.899 Other long term (current) drug therapy
CPT/HCPCS: 12002; 73630; 99284; A9270-GY

== ENCOUNTER 2019-02-22 02:34 | Emergency (ER) | payer OTHER ==
--- NOTE | 2019-02-22 03:23 | ERPHSYRPT ---
- History of Present Illness Source: patient, family, EMS Exam Limitations: clinical condition Timing/Duration: other (chronic) Severity: moderate Associated Symptoms: shortness of breath, weakness Hx Tetanus, Diphtheria Vaccination/Date Given: Yes (UP TO DATE) Hx Influenza Vaccination/Date Given: Yes Hx Pneumococcal Vaccination/Date Given: Yes <MAXIMILIAN HUANG - Last Filed: 02/22/19 07:13> <ADRIAN CH - Last Filed: 02/22/19 08:29> - History of Present Illness Time Seen by Provider: 02/22/19 03:00 Physician History: 84 y/o white male [facility] with multiple medical problems including chf, cadz, copd , pedal edema, gout, renal and liver problems presents with complaint of weakness. pt was discharge to home on Monday February 18, 2019. pt has been gaining weight and [place] doctors increased his diuretics. pt on home oxygen tx of 3 liters nc. pt has pacemaker in place. pt can no longer ambulate. pt is DNR (MAXIMILIAN HUANG) Allergies/Adverse Reactions: No Known Drug Allergies Allergy (Verified 06/04/18 05:26) Home Medications: Albuterol 2.5 mg/3 ml Neb [Proventil 2.5 mg/3 ml Neb] 2.5 mg IH Q6H PRN PRN 08/31/16 [History] Atorvastatin Calcium [Lipitor 40Mg] 10 mg PO HS 08/31/16 [History] Budesonide [Pulmicort Flexhaler] 2 inh BID 08/31/16 [History] Lisinopril 5 mg [Zestril 5 MG] 2.5 mg PO DAILY 08/31/16 [History] Metoprolol Succinate 25 mg Xl* [Toprol-Xl 25MG Tablets] 12.5 mg PO DAILY 11/12 [History] Tiotropium [place] Inhaler [Spiriva 18 Mcg/Cap Inhaler] 1 ea IH DAILY 11/12 [History] Torsemide [Demadex] 20 mg PO BID 08/31/16 [History] - Review of Systems Constitutional: Weakness Eyes: No Symptoms Respiratory: Dyspnea Cardiac: No Symptoms Abdominal/Gastrointestinal: No Symptoms Genitourinary Symptoms: No Symptoms Musculoskeletal: Other (bilateral leg pain and swelling with left > right.) Skin: Other (skin with edema bilat lower ext left greater than right, left lower leg with large blister) Neurological: Speech Changes (began 24 hours ago.) Psychological: No Symptoms Endocrine: No Symptoms Hematologic/Lymphatic: No Symptoms Immunological/Allergic: No Symptoms All Other Systems: Reviewed and Negative <MAXIMILIAN HUANG - Last Filed: 02/22/19 07:13> - Past Medical History Pertinent Past Medical History: Yes Neurological History: No Pertinent History Cardiac History: Other Respiratory History: No Pertinent History, COPD Endocrine Medical History: No Pertinent History Musculoskeletal History: Osteoarthritis Other Medical History: PACEMAKER - Past Surgical History Past Surgical History: Yes Cardiac: Cardiac Catheterization, Pacemaker - Social History Smoking Status: Light tobacco smoker Exposure to second hand smoke: No Drug Use: none Patient Lives Alone: No <MAXIMILIAN HUANG - Last Filed: 02/22/19 07:13> - Physical Exam General Appearance: mild distress, alert, lethargy Eye Exam: scleral icterus Ears, Nose, Throat Exam: dry mucous membranes Neck Exam: normal inspection, non-tender, supple, full range of motion Respiratory Exam: normal breath sounds, lungs clear, airway intact, No chest tenderness, No respiratory distress Cardiovascular Exam: regular rate/rhythm, normal heart sounds, normal peripheral pulses Gastrointestinal/Abdomen Exam: soft, normal bowel sounds, No tenderness Rectal Exam: not done Back Exam: normal inspection, normal range of motion, No CVA tenderness, No vertebral tenderness Extremity Exam: pedal edema, swelling, tenderness, other (left swelling worse than right. large left lower leg blister present) Skin Exam: jaundice Lymphatic Exam: No adenopathy SpO2 Interpretation: borderline oxygenation O2 Delivery: Room Air <MAXIMILIAN HUANG - Last Filed: 02/22/19 07:13> - Nursing Vital Signs Nursing Vital Signs: Initial Vital Signs Temperature 98.4 F 02/22/19 03:12 Pulse Rate 80 02/22/19 03:12 Respiratory Rate 44 H 02/22/19 03:12 Blood Pressure 78/46 02/22/19 03:12 O2 Sat by Pulse Oximetry 91 L 02/22/19 03:12 Pain Scale Pain Intensity 4 - Course EKG Interpreted by Me: RATE (82), Other (pacemaker rhythm. no change from comparison ekg.) <MAXIMLIIAN HUANG - Last Filed: 02/22/19 07:13> Ordered Tests: Active Orders 24 hr Category Date Time Status [employer] STAT Care 02/22/19 03:33 Active Catheter-[place] STAT Care 02/22/19 03:31 Active EKG-ER Only STAT Care 02/22/19 03:31 Active IV Insertion STAT Care 02/22/19 03:31 Active CHEST 1 VIEW (PORTABLE) Stat Exams 02/22/19 03:32 Taken HEAD WITHOUT CONTRAST [CT] Stat Exams 02/22/19 03:33 Taken ARTERIAL BLOOD GASES Urgent Lab 02/22/19 04:08 Completed BLOOD CULTURE Stat Lab 02/22/19 08:02 Ordered CBC W DIFF Stat Lab 02/22/19 04:15 Results CMP Stat Lab 02/22/19 04:15 Completed D-DIMER QUANTITATION Stat Lab 02/22/19 04:15 Completed Lactic Acid Stat Lab 02/22/19 06:42 Results Lactic Acid Urgent Lab 02/22/19 04:08 Completed Manual Differential NC Stat Lab 02/22/19 04:15 Results NT PRO BNP Stat Lab 02/22/19 04:15 Completed PROTIME WITH INR Stat Lab 02/22/19 04:15 Completed Pathologist Review Stat Lab 02/22/19 04:15 Results TROPONIN Q3H Lab 02/22/19 04:15 Completed TROPONIN Q3H Lab 02/22/19 06:45 Completed TROPONIN Q3H Lab 02/22/19 09:45 Ordered TROPONIN Q3H Lab 02/22/19 12:45 Ordered TROPONIN Q3H Lab 02/22/19 15:45 Ordered UA W/RFX UR CULTURE Stat Lab 02/22/19 03:32 Uncollected Medication Summary Generic Name Dose Route Start Last Admin Trade Name Freq PRN Reason Stop Dose Admin Dopamine HCl/Dextrose 250 mls @ 20.072 mls/hr 02/22/19 07:04 02/22/19 07:58 Dopamine 400 Mg/D5w 250ml Premix IV 03/24/19 07:03 5 mcg/kg/min .[id number] PRN 20.072 mls/hr SEVERE HYPOTENSION Administration Protocol 5 MCG/KG/MIN Vancomycin HCl 250 mls @ 167 mls/hr 02/22/19 08:02 Vancomycin 1gm/ Ns 250ml IV 02/22/19 09:31 STAT ONE Discontinued Medications Generic Name Dose Route Start Last Admin Trade Name García PRN Reason Stop Dose Admin Albuterol/Ipratropium 3 ml 02/22/19 08:18 Duoneb 0.5-3 Mg/3 Ml Neb IH 02/22/19 08:19 STAT ONE Furosemide 20 mg 02/22/19 06:44 Lasix 20 Mg/2 Ml IV 02/22/19 06:45 STAT ONE Sodium Chloride Confirm 02/22/19 05:41 Sodium Chloride 0.9% 500 Ml Administered 02/22/19 05:42 Dose 500 mls @ ud IV .STK-MED ONE Sodium Chloride 500 mls @ 500 mls/hr 02/22/19 05:45 02/22/19 08:08 Sodium Chloride 0.9% 500 Ml IV 02/22/19 06:44 Infused .Q1H ONE Infusion Albumin Human 50 ml/ Sodium 250 mls @ 250 mls/hr 02/22/19 06:45 02/22/19 07: 41 Chloride IV 02/22/19 07:44 125 mls/hr .Q1H AIME 125 mls/hr Administration Meropenem 500 mg/ Sodium 100 mls @ 200 mls/hr 02/22/19 06:58 02/22/19 07:39 Chloride IV 02/22/19 07:27 200 mls/hr STAT ONE Administration Dopamine HCl/Dextrose Confirm 02/22/19 07:56 Dopamine 400 Mg/D5w 250ml Premix Administered 02/22/19 07:57 Dose 250 mls @ ud IV .STK-MED ONE Lab/Rad Data: Laboratory Result [facility] 02/22/19 04:15 02/22/19 04:15 Laboratory Results 02/22/19 02/22/19 02/22/19 Range/Units 06:45 06:42 04:15 WBC (4.0-10.5) K/mm3 RBC (4.1-5.6) M/mm3 Hgb (12.5-18.0) gm/dl Hct (42-50) % MCV (78-100) fl MCH (26-32) pg MCHC (32-36) g/dl RDW (11.5-14.0) % Plt Count (150-450) K/mm3 MPV (6-9.5) fl Segmented Neutrophils (36.-66.) % Band Neutrophils (0.0-2.0) % Lymphocytes (Manual) (24-44) % Monocytes (Manual) (0.0-12.0) % Metamyelocytes % Platelet Estimate (NORMAL) RBC Morphology Poikilocytosis Basophilic Stippling Anisocytosis Smear Path Review PT (8.83-12.87) SECONDS INR (0.8-3.0) D-Dimer (215-500) ng/mL Puncture Site pCO2 (35-45) mmHg pO2 (75-100) mmHg Base Excess (-2.0-2.0) O2 Saturation (94-100) g/dF ABG pH (7.35-7.45) ABG HCO3 (22-28) ABG O2 Sat (Measured) (95-100) % Kvng Test A-a Gradient a/A Ratio Hemoglobin Carboxyhemoglobin (0.0-6.9) % THgb Methemoglobin (1.4-1.5) % Potassium (3.5-5.1) Temperature C POC O2 Flow Rate % Sodium (137-145) mmol/L Chloride (98-107) mmol/L Carbon Dioxide (22-30) mmol/L Anion Gap (5-15) MEQ/L BUN (9-20) mg/dL Creatinine (0.66-1.25) mg/dL Estimated GFR ML/MIN Glucose (74-106) mg/dL Lactic Acid 4.4 H (0.4-2.0) Calcium (8.4-10.2) mg/dL Total Bilirubin (0.2-1.3) mg/dL AST (17-59) U/L ALT (0-50) U/L Alkaline Phosphatase (38-126) U/L Troponin I 0.312 H* 0.275 H* (0.000-0.034) ng/mL NT-Pro-B Natriuret Pep (0-1800) pg/mL Serum Total Protein (6.3-8.2) g/dL Albumin (3.5-5.0) g/dL 02/22/19 02/22/19 02/22/19 Range/Units 04:15 04:15 04:15 WBC 46.1 H* (4.0-10.5) K/mm3 RBC 3.89 L (4.1-5.6) M/mm3 Hgb 11.5 L (12.5-18.0) gm/dl Hct 37.1 L (42-50) % MCV 95.4 (78-100) fl MCH 29.5 (26-32) pg MCHC 31.0 L (32-36) g/dl RDW 17.9 H (11.5-14.0) % Plt Count 30 L (150-450) K/mm3 MPV 13.0 H (6-9.5) fl Segmented Neutrophils 56 (36.-66.) % Band Neutrophils 27 H (0.0-2.0) % Lymphocytes (Manual) 12 L (24-44) % Monocytes (Manual) 3 (0.0-12.0) % Metamyelocytes 2 % Platelet Estimate DECREASED (NORMAL) RBC Morphology ABNORMAL Poikilocytosis 1+ Basophilic Stippling 1+ Anisocytosis 1+ Smear Path Review Pending PT 35.4 H (8.83-12.87) SECONDS INR 3.06 H (0.8-3.0) D-Dimer 1432 H* (215-500) ng/mL Puncture Site pCO2 (35-45) mmHg pO2 (75-100) mmHg Base Excess (-2.0-2.0) O2 Saturation (94-100) g/dF ABG pH (7.35-7.45) ABG HCO3 (22-28) ABG O2 Sat (Measured) (95-100) % Kvng Test A-a Gradient a/A Ratio Hemoglobin Carboxyhemoglobin (0.0-6.9) % THgb Methemoglobin (1.4-1.5) % Potassium 4.9 (3.5-5.1) Temperature C POC O2 Flow Rate % Sodium 135 L (137-145) mmol/L Chloride 95 L (98-107) mmol/L Carbon Dioxide 26 (22-30) mmol/L Anion Gap 18.4 H (5-15) MEQ/L BUN 47 H (9-20) mg/dL Creatinine 1.66 H (0.66-1.25) mg/dL Estimated GFR 42.4 ML/MIN Glucose 85 (74-106) mg/dL Lactic Acid (0.4-2.0) Calcium 8.0 L (8.4-10.2) mg/dL Total Bilirubin 3.70 H (0.2-1.3) mg/dL AST 32 (17-59) U/L ALT 17 (0-50) U/L Alkaline Phosphatase 84 (38-126) U/L Troponin I (0.000-0.034) ng/mL NT-Pro-B Natriuret Pep 51019 H (0-1800) pg/mL Serum Total Protein 5.8 L (6.3-8.2) g/dL Albumin 2.8 L (3.5-5.0) g/dL 02/22/19 Range/Units 04:08 WBC (4.0-10.5) K/mm3 RBC (4.1-5.6) M/mm3 Hgb (12.5-18.0) gm/dl Hct (42-50) % MCV (78-100) fl MCH (26-32) pg MCHC (32-36) g/dl RDW (11.5-14.0) % Plt Count (150-450) K/mm3 MPV (6-9.5) fl Segmented Neutrophils (36.-66.) % Band Neutrophils (0.0-2.0) % Lymphocytes (Manual) (24-44) % Monocytes (Manual) (0.0-12.0) % Metamyelocytes % Platelet Estimate (NORMAL) RBC Morphology Poikilocytosis Basophilic Stippling Anisocytosis Smear Path Review PT (8.83-12.87) SECONDS INR (0.8-3.0) D-Dimer (215-500) ng/mL Puncture Site LEFT RADIAL pCO2 43 (35-45) mmHg pO2 87 (75-100) mmHg Base Excess 4.5 H (-2.0-2.0) O2 Saturation 92.9 L (94-100) g/dF ABG pH 7.44 (7.35-7.45) ABG HCO3 29.2 H* (22-28) ABG O2 Sat (Measured) 99.7 (95-100) % Kvng Test YES A-a Gradient 144 a/A Ratio 0.38 Hemoglobin 11.9 Carboxyhemoglobin 5.9 (0.0-6.9) % THgb Methemoglobin 0.8 L (1.4-1.5) % Potassium 4.7 (3.5-5.1) Temperature 37.0 C POC O2 Flow Rate 40 % Sodium (137-145) mmol/L Chloride (98-107) mmol/L Carbon Dioxide (22-30) mmol/L Anion Gap (5-15) MEQ/L BUN (9-20) mg/dL Creatinine (0.66-1.25) mg/dL Estimated GFR ML/MIN Glucose (74-106) mg/dL Lactic Acid 4.7 H (0.4-2.0) Calcium (8.4-10.2) mg/dL Total Bilirubin (0.2-1.3) mg/dL AST (17-59) U/L ALT (0-50) U/L Alkaline Phosphatase (38-126) U/L Troponin I (0.000-0.034) ng/mL NT-Pro-B Natriuret Pep (0-1800) pg/mL Serum Total Protein (6.3-8.2) g/dL Albumin (3.5-5.0) g/dL - Progress Progress: improved Counseled pt/family regarding: lab results, diagnosis, need for follow-up, rad results <MAXIMILIAN HUANG - Last Filed: 02/22/19 07:13> <ADRIAN CH - Last Filed: 02/22/19 08:29> - Progress Progress Note: 02/22/19 06:28 02/22/19 06:49 called transfer center at [facility]. awaiting call back. 02/22/19 07:[address] ch. he accepts pt and i reviewed pt hx, condition, lab, ekg and xray results with him. (MAXIMILIAN HUANG) 02/22/19 08:20 This is a 4-year-old white male initially seen by Dr. Huang with the multiple medical problems including congestive heart failure coronary artery disease, COPD, pedal edema, gout, renal and liver problems Who is brought in with complaint of weakness patient apparently was too weak to get into bed he was brought by medics the patient on arrival is noted to have a peripheral edema which is markedly he has edema to the stomach edema bilateral lower extremities left greater than right he has a large blister on his left lower leg left leg is erythematous Past medical history includes COPD osteoarthritis cardiac pacemaker past surgical history includes cardiac catheterization and pacemaker Patient is a comfort measures only which is no CODE STATUS. Patient apparently was recently released from the [facility]. Patient was opening vitals temperature 98.4 pulse 80 respirations 44 blood pressure 78/46 saturation 91% on 5 L of nasal cannula Patient's EKG paced rhythm 80 beats per minute Patient's chest x-ray interstitial edema Patient's labs CBC white blood cell 46.1 hemoglobin 11.5 hematocrit 37 platelets are 30 chemistry sodium 135 potassium 4.9 chloride 95 bicarbonate 26 BUN 47 creatinine 1.66 glucose was 85 GFR is 42.4 BNP is 17,600 lactate is initial 4.7 now 4.4 The patient's troponin 0.275 patient's d-dimer 1432 INR is 3.06 Nurses have placed the Llamas was unable to receive any urine Patient has had albumin 500 mg which has been ordered Lasix 20 mg which is been held until blood pressure is elevated to better extend he has received your p.m. is also received normal saline 500 mL bolus and started on dopamine drip at 5 mcg per kilogram per minute. I've discussed the patient's case with Dr. Ponce at the [facility] in [place] . He has requested that the patient also received vancomycin 1 g IV. On checking the patient patient is somewhat edematous neck he has erythema to his lower extremities marked edema to his lower extremities. Lungs some fine wheezing. Heart is regular. Patient is alert and oriented x3 I have ordered a DuoNeb treatment on the patient I've asked the nurses to go ahead and arrange for helicopter transfer for this patient to [facility] ICU. Dr. Ponce is accepting physician. Impression: hypotension, congestive heart failure peripheral edema, sepsis,. (ADRIAN CH) - Departure Departure Disposition: Transfer Critical Care Time: Yes Critical Care Time(excluding separately billable procedures): 30-74 minutes <MAXIMILIAN HUANG - Last Filed: 02/22/19 07:13> - Departure Departure Disposition: Transfer ([facility]) <ADRIAN CH - Last Filed: 02/22/19 08:29> - Departure Clinical Impression: Elevated d-dimer, Elevated troponin, CHF (congestive heart failure), Thrombocytopenia, Leukocytosis, Hypoxia, Hypoalbuminemia, Renal failure, Hypotension Condition: Serious Referrals: HOSPITAL,'S [Primary Care Provider] - Instructions: Heart Failure
[2019-02-22 04:05] LABS: Hematocrit 37.1 % (42-50); Hemoglobin 11.5 gm/dl (12.5-18.0); Mean Cell Volume 95.4 fl (78-100); Red Blood Count 3.89 M/mm3 (4.1-5.6); Red Cell Distribution Width 17.9 % (11.5-14.0)
[2019-02-22 04:09] LABS: A-aADO2 144; ABG HEMOGLOBIN 11.9; ABG POTASSIUM 4.7 (3.5-5.1); ARTERIAL BLD GAS O2 SATURATION 99.7 % (95-100); ARTERIAL BLOOD GAS BASE EXCESS 4.5 (-2.0-2.0); ARTERIAL BLOOD GAS FIO2 40 %; ARTERIAL BLOOD GAS PCO2 43 mmHg (35-45); ARTERIAL BLOOD GAS PO2 87 mmHg (75-100); ARTERIAL BLOOD GAS pH 7.44 (7.35-7.45); CARBOXYHEMOGLOBIN 5.9 % THgb (0.0-6.9); HCO3- 29.2 (22-28); HGB O2 SAT 92.9 g/dF (94-100); Lactic Acid 4.7 (0.4-2.0); Methhemoglobin 0.8 % (1.4-1.5); paO2 pAO1 0.38
[2019-02-22 04:10] LABS: ABG SITE LEFT RADIAL; ALLEN TEST OK? YES
[2019-02-22 04:25] LABS: INR 3.06 (0.8-3.0); PROTIME 35.4 SECONDS (8.83-12.87)
[2019-02-22 04:44] LABS: Mean Corpuscular Hemoglobin 29.5 pg (26-32); Platelet Count 30 K/mm3 (150-450); White Blood Count 46.1 K/mm3 (4.0-10.5)
[2019-02-22 04:47] LABS: ALBUMIN 2.8 g/dL (3.5-5.0); ANION GAP 18.4 MEQ/L (5-15); BILIRUBIN,TOTAL 3.7 mg/dL (0.2-1.3); Creatinine 1 1.66 mg/dL (0.66-1.25); Potassium 4.9 mmol/L (3.5-5.1); Total Protein 5.8 g/dL (6.3-8.2)
[2019-02-22 04:48] LABS: BAND 27 % (0.0-2.0); Lymphocytes 12 % (24-44); Metamyelocyte 2 %; Monocyte 3 % (0.0-12.0); Neutrophils 56 % (36.-66.); Total Cells Counted 100
[2019-02-22 04:49] LABS: ANISOCYTOSIS 1+; Basophilic Stippling 1+; Platelet Estimate DECREASED (NORMAL); Poikilocytosis 1+
[2019-02-22] MEDS ORDERED: Sodium Chloride 0.9% 500 ML 500 ML IV ONE ×2 (05:41→05:45)
[2019-02-22 05:59] VITALS: PULSE 80
[2019-02-22] MEDS ORDERED: Lasix 20 MG/2 ML IV ONE (06:44)
[2019-02-22] MEDS ORDERED: AlbuRx 25% 50ML VIAL*** 50 ML in Sodium Chloride 0.9% 250 ML 200 ML IV SCH (06:45)
[2019-02-22 06:55] LABS: Lactic Acid 4.4 (0.4-2.0)
[2019-02-22] MEDS ORDERED: MERREM 500MG 500 MG in Sodium Chloride 100ML MINI-BAG PLUS 100 ML IV ONE (06:58)
[2019-02-22] MEDS ORDERED: Dopamine 400 MG/D5W 250ML PREMIX 250 ML IV PRN (07:04)
[2019-02-22] MEDS ORDERED: Dopamine 400 MG/D5W 250ML PREMIX 250 ML IV ONE (07:56)
[2019-02-22] MEDS ORDERED: Vancomycin 1GM/ Ns 250ML*** 250 ML IV ONE ×2 (08:02→08:22)
[2019-02-22] MEDS ORDERED: DUONEB 0.5-3 MG/3 ml Neb IH ONE ×2 (08:18→08:30)
--- NOTE | 2019-02-22 08:54 | XRAY ---
Indication: Short of breath, lower extremity edema, lethargy, and weakness. Comparison: June 07, 2017. Portable chest again demonstrates left pacemaker, cardiomegaly, vascular congestion, pulmonary edema, and bilateral infiltrates/atelectasis/effusion again left greater than right. Findings favor cardiac decompensation. Superimposed pneumonia not completely excluded.
--- NOTE | 2019-02-22 08:56 | XRAY ---
Indication: Lethargy, weakness, and speech changes. Multiple contiguous axial images obtained through the head without contrast. Comparison: None Age-appropriate global atrophy and mild periventricular degenerative micro-ischemia bilaterally. No acute intracranial hemorrhage, abnormal extra-axial fluid collection, or mass effect. Fourth ventricle is midline without hydrocephalus. Bony calvarium intact. Moderate mucosal thickening of the visualized left maxillary sinus. Remaining visualized paranasal sinuses and mastoid air cells are clear. Impression: Nonacute senile brain. Incidental left maxillary sinus disease. Comment: Preliminary interpretation was made by [facility]. No discrepancy. CT DI is 61.58
[2019-02-22] MEDS ORDERED: LEVOPHED 4 MG/4 ML 4,000 MCG in Dextrose 5%/Water IV Soln. 500 ML 500 ML IV PRN (09:04)
[2019-02-22 09:13] VITALS: BP 68/32; O2SAT 91
== END 2019-02-22 09:30 ==
LOC: ED 02:34
DX: R79.89 Other specified abnormal findings of blood chemistry (principal); R74.8 Abnormal levels of other serum enzymes; I50.9 Heart failure, unspecified; D69.6 Thrombocytopenia, unspecified; D72.829 Elevated white blood cell count, unspecified; R09.02 Hypoxemia; E88.09 Other disorders of plasma-protein metabolism, not elsewhere classified; N19 Unspecified kidney failure; I95.9 Hypotension, unspecified; A41.9 Sepsis, unspecified organism; J44.9 Chronic obstructive pulmonary disease, unspecified; M19.90 Unspecified osteoarthritis, unspecified site; Z95.0 Presence of cardiac pacemaker; Z79.899 Other long term (current) drug therapy
CPT/HCPCS: 36000; 36415; 36600; 51702; 70450; 71045; 80053; 82375; 82803; 83605; 83880; 84484; 85025; 85379; 85610; 87040; 93005; 93041; 94640; 96360; 96365; 96367; 96374; 96375; 99285; 99291; 99292; J1265; J3370; P9047; A9270-GY